=== PATIENT | male | born 1955 | race Hispanic/Latino ===

== ENCOUNTER → 2022-05-02 | Outpatient (CLI) | payer OTHER | END | disposition home or self-care (01) | LOC: WHH 08:47 | PROVIDERS: ATTEND Podiatrist Foot & Ankle Surgery | DX: S91.102A Unspecified open wound of left great toe without damage to nail, initial encounter (principal); M86.672 Other chronic osteomyelitis, left ankle and foot; I96 Gangrene, not elsewhere classified; K21.9 Gastro-esophageal reflux disease without esophagitis; X58.XXXA Exposure to other specified factors, initial encounter; Y93.89 Activity, other specified; Y92.89 Other specified places as the place of occurrence of the external cause; Y99.8 Other external cause status | CPT/HCPCS: G0463; A4450 ==